=== PATIENT | female | born 1980 | race Caucasian/White ===

== ENCOUNTER 2017-04-05 18:23 | Emergency (ER) | payer BC ==
[~2017-04-05] VITALS: Ht 154.9 cm; Wt 71.3 kg
[~2017-04-05 18:23] MED LIST: CALC500C3; CLC100 PO; MTR600X PO; PRENTAB26 PO
[2017-04-05 18:40] VITALS: TEMP 36.7; Ht 154.9 cm; Wt 71.3 kg
[2017-04-05] MEDS ORDERED: KETOROLAC TROMETHAMINE 30 MG/ML VIAL IV STA (18:53)
[2017-04-05 19:15] VITALS: O2SAT 99
[2017-04-05 19:20] LABS: BASO % 0.2 %; BASO ABS # 0.02 K/uL (0-0.2); COMPLETE YES; EOS % 2.1 %; HEMATOCRIT 38.8 % (37-47); IG% 0.2 %; LYMPH % 35.6 %; LYMPH ABS # 3.91 K/uL (1.2-3.4); MEAN CORPUSCULAR HGB CONC 33.8 g/dl (32-36); MEAN PLATELET VOLUME 9.4 fL (7.4-10.4); MONO % 7.4 %; NEUT % 54.5 %; PLATELET COUNT 283 K/uL (130-400); RED BLOOD COUNT 4.51 M/uL (4.2-5.4); WHITE BLOOD COUNT 10.98 K/uL (4.8-10.8)
[2017-04-05 19:35] LABS: PROTHROMBIN TIME (PATIENT) 10.8 SECONDS (9.0-12.0)
[2017-04-05 19:39] LABS: BUN/CREATININE RATIO 20.3 (10-20); CALCIUM 8.8 mg/dl (8.5-10.1); CREATININE 0.85 mg/dl (0.60-1.20); POTASSIUM 3.7 mmol/L (3.5-5.1)
[2017-04-05] MEDS ORDERED: OPTIRAY 320 IV PRN (20:15)
[2017-04-05 20:20] VITALS: BP 130/69
--- NOTE | 2017-04-05 20:25 | DIAGNOSTIC IMAGING REPORT ---
CT ANGIOGRAPHY OF THE CHEST, PULMONARY EMBOLUS PROTOCOL CLINICAL HISTORY: Left-sided chest pain and shortness of breath. COMPARISON STUDY: No previous studies for comparison. TECHNIQUE: Following IV administration of 101 mL of Optiray-320, helical axial images of the chest were obtained utilizing the pulmonary embolus protocol. Maximal intensity projections and sagittal and coronal reformats were viewed on an independent 3D workstation. IV contrast was administered without complication. CT DOSE: 364.22 mGy.cm FINDINGS: No pulmonary emboli are identified. There is no evidence of thoracic aortic dissection. The size of the heart is normal. There is no pericardial effusion. No enlarged axillary, mediastinal or hilar lymph nodes are present. There is no pneumomediastinum. There is no consolidation to suggest pneumonia. Central airways are patent. There is no pneumothorax or pleural effusion. Bony thorax and upper abdomen are unremarkable. IMPRESSION: 1. No pulmonary emboli identified. 2. No acute intrathoracic findings. Electronically signed by: Segundo Amor M.D. 04/05/2017 8:23 PM Dictated Date/Time: 04/05/2017 8:15 PM
[2017-04-05 20:45] VITALS: PULSE 72; O2SAT 98
--- NOTE | 2017-04-06 00:30 | EMERGENCY ROOM VISIT NOTE ---
History Report prepared by Pramod: Rebecca Jordan Under the Supervision of: Dr. Kevon Myers M.D. First contact with patient: 18:44 Chief Complaint: SHORTNESS OF BREATH Stated Complaint: SOB, PAIN BELOW RIBS - RUNS UP LEFT BACK/SHOULDER History of Present Illness The patient is a 37 year old female who presents to the Emergency Room with complaints of constant shortness of breath beginning yesterday afternoon. The patient states that she was laying on the cough with her daughter when the shortness of breath began. It was a sudden onset. She also notes pain under her left ribs. This pain worsens with a deep breath or when yawning. The patient states that the pain radiates up her back and to her shoulder. She states that she is recovering from cold symptoms. She notes increase coughing today but believes it is from the shortness of breath she is experiencing. The patient denies diarrhea, black or bloody stools, urinary symptoms or a history of kidney stones. The patient states that she has not taken any pain medication for her symptoms She denies swelling or pain to lower extremities, recent surgeries, recent long trips or immobilization, a history of blood clots. The patient is not on control. She is a non smoker. She has had a hysterectomy but is not on hormone replacement because she still has one ovary. Source of History: patient Onset: yesterday afternoon Position: other (global) Quality: other (shortness of breath) Timing: constant Modifying Factors (Worsening): breathing, other (yawning) Associated Symptoms: + back pain, + chest pain, + cough, No diarrhea, No urinary symptoms Note: The patient is experiencing pain under her left rib. The patient denies black or bloody stools, a history of kidney stones, swelling or pain to lower extremities, recent surgeries, recent long trips, or a history of blood clots. Review of Systems See HPI for pertinent positives & negatives. A total of 10 systems reviewed and were otherwise negative. Past Medical & Surgical Surgical Problems: (1) History of hysterectomy Family History Cancer FHx: gallbladder disease Hypertension Social History Smoking Status: Never Smoker Smokeless Tobacco Use: No Alcohol Use: none Marital Status: Housing Status: lives with family Occupation Status: employed Current/Historical Medications No Active Prescriptions or Reported Meds Allergies Coded Allergies: Codeine (Verified Adverse Reaction, Intermediate, SEVERE STOMACH PAIN, 12/11) Physical Exam Vital Signs Date Time Temp Pulse Resp B/P Pulse Ox O2 Delivery O2 Flow Rate FiO2 04/05/17 20:45 72 18 98 04/05/17 20:29 78 04/05/17 20:20 79 20 130/69 99 Room Air 04/05/17 19:15 99 Room Air 04/05/17 18:40 36.7 91 18 121/74 98 Room Air Physical Exam Constitutional: Vital signs reviewed. Eyes: Pupils are equal round reactive to light. Conjunctiva are noninjected. ENT: Pharynx is clear without erythema or exudate. Mucous membranes are moist. Neck supple without meningeal signs. Respiratory: Clear to auscultation bilaterally. Breath sounds are equal bilaterally. Cardiovascular: Regular rate and rhythm. No rubs or gallops. GI: Soft, nondistended and nontender. Bowel sounds are present. Musculoskeletal: No peripheral edema. No lower extremity tenderness. Integumentary: No cyanosis. Neurological: The patient is awake and alert. No focal deficits. Psychiatric: Normal affect. Medical Decision & Procedures ER Provider Diagnostic Interpretation: CT results as stated below per my review and radiologist interpretation. CT ANGIOGRAPHY OF THE CHEST, PULMONARY EMBOLUS PROTOCOL CLINICAL HISTORY: Left-sided chest pain and shortness of breath. COMPARISON STUDY: No previous studies for comparison. TECHNIQUE: Following IV administration of 101 mL of Optiray-320, helical axial images of the chest were obtained utilizing the pulmonary embolus protocol. Maximal intensity projections and sagittal and coronal reformats were viewed on an independent 3D workstation. IV contrast was administered without complication. CT DOSE: 364.22 mGy.cm FINDINGS: No pulmonary emboli are identified. There is no evidence of thoracic aortic dissection. The size of the heart is normal. There is no pericardial effusion. No enlarged axillary, mediastinal or hilar lymph nodes are present. There is no pneumomediastinum. There is no consolidation to suggest pneumonia. Central airways are patent. There is no pneumothorax or pleural effusion. Bony thorax and upper abdomen are unremarkable. IMPRESSION: 1. No pulmonary emboli identified. 2. No acute intrathoracic findings. Electronically signed by: Segundo Amor M.D. 04/05/2017 8:23 PM Dictated Date/Time: 04/05/2017 8:15 PM Laboratory Results 04/05/17 19:10 Red Blood Count 4.51, Mean Corpuscular Volume 86.0, Mean Corpuscular Hemoglobin 29.0, Mean Corpuscular Hemoglobin Concent 33.8, Mean Platelet Volume 9.4, Neutrophils (%) (Auto) 54.5, Lymphocytes (%) (Auto) 35.6, Monocytes (%) (Auto) 7.4, Eosinophils (%) (Auto) 2.1, Basophils (%) (Auto) 0.2, Neutrophils # (Auto) 5.99, Lymphocytes # (Auto) 3.91, Monocytes # (Auto) 0.81, Eosinophils # (Auto) 0.23, Basophils # (Auto) 0.02 04/05/17 19:10 Test 04/05/17 19:10 04/05/17 19:14 White Blood Count 10.98 K/uL (4.8-10.8) Red Blood Count 4.51 M/uL (4.2-5.4) Hemoglobin 13.1 g/dL (12.0-16.0) Hematocrit 38.8 % (37-47) Mean Corpuscular Volume 86.0 fL (80-100) Mean Corpuscular Hemoglobin 29.0 pg (25-34) Mean Corpuscular Hemoglobin Concent 33.8 g/dl (32-36) Platelet Count 283 K/uL (130-400) Mean Platelet Volume 9.4 fL (7.4-10.4) Neutrophils (%) (Auto) 54.5 % Lymphocytes (%) (Auto) 35.6 % Monocytes (%) (Auto) 7.4 % Eosinophils (%) (Auto) 2.1 % Basophils (%) (Auto) 0.2 % Neutrophils # (Auto) 5.99 K/uL (1.4-6.5) Lymphocytes # (Auto) 3.91 K/uL (1.2-3.4) Monocytes # (Auto) 0.81 K/uL (0.11-0.59) Eosinophils # (Auto) 0.23 K/uL (0-0.5) Basophils # (Auto) 0.02 K/uL (0-0.2) RDW Standard Deviation 41.0 fL (36.4-46.3) RDW Coefficient of Variation 13.0 % (11.5-14.5) Immature Granulocyte % (Auto) 0.2 % Immature Granulocyte # (Auto) 0.02 K/uL (0.00-0.02) Prothrombin Time 10.8 SECONDS (9.0-12.0) Prothromb Time International Ratio 1.0 (0.9-1.1) Activated Partial Thromboplast Time 26.4 SECONDS (21.0-31.0) Partial Thromboplastin Ratio 1.0 Anion Gap 7.0 mmol/L (3-11) Est Creatinine Clear Calc Drug Dose 81.8 ml/min Estimated GFR () 101.5 Estimated GFR (Non- 87.5 BUN/Creatinine Ratio 20.3 (10-20) Calcium Level 8.8 mg/dl (8.5-10.1) Bedside D-Dimer > 450 ng/mlFEU (0-450) Bedside Troponin I 0.000 ng/ml (0-0.045) Laboratory results as reviewed by me. Medications Administered Medications (Trade) Dose Ordered Sig/Reynaldo Route Start Time Stop Time Status Last Admin Dose Admin Ketorolac Tromethamine (Toradol Inj) 10 mg NOW STAT IV 04/05/17 18:53 04/05/17 18:56 DC 04/05/17 19:19 10 MG ECG Indication: SOB/dyspnea Rate (beats per minute): 82 Rhythm: normal sinus Findings: no acute ischemic change, no ectopy ED Course 1846: The patient was evaluated in room A12. A complete history and physical exam was performed. 1852: Toradol Inj 10 mg IV. 1944: I talked with the patient about elevated D Dimer and CT scan as well as test results. 2035: I talked with the patient and reviewed return instructions along with need for follow up. 2038: Upon reevaluation, the patient appeared to have improvement of her symptoms. I discussed tonight's findings with her. She verbalized agreement of the treatment plan. She was discharged home. Medical Decision This is a 37-year-old female who presents with shortness of breath and chest pain. Differential diagnosis includes PE, DVT, pleurisy, pneumonia, pneumothorax, pericarditis. I did perform a limited focused review of portions of the patient's old chart on the electronic medical record. The patient has had no recent pertinent visits to this hospital. Blood Pressure Screening: Patient was found to have normal blood pressure on screening and does not require follow-up. Medication Reconciliation: I attest that I have personally reviewed the patient' s current medication list. I did evaluate the patient as noted above. Patient is presenting with shortness of breath and pleuritic chest pain. She does not have any known risk factors for pulmonary embolism. IV access was established. The patient was placed on a continuous groundwater monitoring technician. I did treat the patient with Toradol IV. I did order and personally review the patient's 12-lead EKG as described above. I did order and review the patient's blood work as noted in the electronic medical record. Troponin is negative. D-dimer is elevated. After discussion with the patient I did order a CT of the chest. I did review the images myself as well as the radiology report as described above. There is no evidence of pulmonary embolism. I did discuss the test results with the patient. At this time her chest pain seems likely secondary to pleurisy as she has recently gotten over a cold. I did, however, recommend close follow up with her doctor for further evaluation. She was advised to take anti- inflammatories and discharged in good condition. Impression Primary Impression: Left sided chest pain Scribe Attestation The scribe's documentation has been prepared under my direct and personally reviewed by me in its entirety. I confirm that the note above accurately reflects all work, treatment, procedures, and medical decision making performed by me. Departure Information Dispostion Home / Self-Care Prescriptions No Active Prescriptions or Reported Meds Referrals Ritesh Buenrostro MD (PCP) Forms HOME CARE DOCUMENTATION FORM, IMPORTANT VISIT INFORMATION Patient Instructions ED Chest Pain Atypical Unkn Cause, My [facility] Additional Instructions You have been examined and treated today on an emergency basis only. This is not a substitute for, or an effort to provide, complete comprehensive medical care. It is impossible to recognize and treat all injuries or illnesses in a single emergency department visit. It is therefore important that you follow up closely with your physician this week. Call as soon as possible for an appointment. Return for worsening symptoms or if you develop fever, vomiting, or an impending sense of doom, lightheadedness, profuse sweating or any other concerning symptoms.
== END 2017-04-05 20:56 | disposition home or self-care (01) ==
LOC: C.EDB 18:24 → C.EDA 20:56
DX: R07.9 Chest pain, unspecified (principal); Z80.9 Family history of malignant neoplasm, unspecified; Z83.79 Family history of other diseases of the digestive system; Z82.49 Family history of ischemic heart disease and other diseases of the circulatory system